=== PATIENT | female | born 1960 | race Caucasian/White ===

== ENCOUNTER 2016-09-23 18:48 | Observation (INO) | payer OTHER ==
--- NOTE | 2016-09-23 19:06 | PDOC ---
Attending Attestation - Resident Resident Name: JacobsenKale - ED Attending Attestation I have performed the following: I have examined & evaluated the patient, The case was reviewed & discussed with the resident, I agree w/resident's findings & plan, Exceptions are as noted <Zacarias Oneill - Last Filed: 09/23/16 19:05> - Resident Resident Name: DelmarKale - ED Attending Attestation I have performed the following: I have examined & evaluated the patient, The case was reviewed & discussed with the resident, I agree w/resident's findings & plan - HPI HPI: The patient is a 56 yo F with a past medical history significant for HTN and DM2 who presents with chest pain, numbness and tingling of her L arm and SOB since earlier today. The patient rates his chest pain 10/10. The patient also endorses associated headache. - Physicial Exam PE: GENERAL: Awake, alert, and fully oriented, in no acute distress HEAD: No signs of trauma EYES: PERRLA, EOMI, sclera anicteric, conjunctiva clear ENT: Auricles normal inspection, hearing grossly normal, nares patent, oropharynx clear without exudates. Moist mucosa NECK: Normal ROM, supple, no lymphadenopathy, JVD, or masses LUNGS: Breath sounds equal, clear to auscultation bilaterally. No wheezes, and no crackles HEART: Regular rate and rhythm, normal S1 and S2, no murmurs, rubs or gallops ABDOMEN: Soft, nontender, normoactive bowel sounds. No guarding, no rebound. No masses EXTREMITIES: Normal range of motion, no edema. No clubbing or cyanosis. No cords, erythema, or tenderness NEUROLOGICAL: Cranial nerves II through XII grossly intact. Normal speech, gait not assessed. SKIN: Warm, Dry, normal turgor, no rashes or lesions noted. - Medical Decision Making Paged Dr. Cortez @ 22:47. Awaiting call back. Documentation prepared by Natacha Perry, acting as medical interpreter for Zacarias Oneill MD/DO. <Natacha Perry - Last Filed: 09/23/16 22:47>
--- NOTE | 2016-09-23 19:54 | PDOC ---
History of Present Illness - General Chief Complaint: Chest Pain Stated Complaint: BLOOD SUGAR PROBLEM Time Seen by Provider: 09/23/16 19:03 History Source: Patient - History of Present Illness Initial Comments: 09/23/16 19:52 56F with pmh of HTN and DM2 presents with 10/10 chest pain and tingling along her left arm and left leg as well as SOB and headache since today. Patient is also concerned that her FS glucose has been increasing steadily since Friday ( 200->250->300). No recent change in medication or diet (metformin and amlodipine ). In the past 2 days increase in urinary frequency and urgency. She reports coughing yesterday but no hemoptysis. PAtient says she was profusely sweating at rest yesterday, sweat localized to her feet only earlier today. No recent travel. No pedal edema. Patient is post-menauposal. 09/23/16 21:20 Past History - Past Medical History Allergies/Adverse Reactions: Allergies Allergy/AdvReac Type Severity Reaction Status Date / Time No Known Allergies Allergy Verified 09/23/16 19:00 Home Medications: Ambulatory Orders Famotidine [Pepcid -] 20 mg PO BID #14 tablet 11/16/14 Mag Hydrox/Al Hydrox/Simeth [Maalox Advanced Suspension] 15 ml PO QID PRN #770 ml 11/16/14 Omeprazole Magnesium [Prilosec (OTC)] 20 mg PO DAILY 11/16/14 Diabetes: Yes GI Disorders: Yes (ULCER) HTN: Yes - Surgical History Cholecystectomy: (GALLSTONES REMOVED) - Psycho/Social/Smoking Cessation Hx Suicidal Ideation: No Smoking Status: No Smoking History: Never smoked Number of Cigarettes Smoked Daily: 0 Hx Alcohol Use: No Drug/Substance Use Hx: No Substance Use Type: None Review of Systems - Review of Systems Constitutional: No: Symptoms Reported HEENTM: No: Symptoms Reported Respiratory: Yes: See HPI, Cough Cardiac (ROS): No: See HPI ABD/GI: No: See HPI : No: See HPI Integumentary: No: Symptoms Reported Neurological: Yes: See HPI Endocrine: Yes: Excessive Sweating *Physical Exam - Vital Signs Last Vital Signs Temp Pulse Resp BP Pulse Ox 98.7 F 97 H 16 156/91 99 09/23/16 18:56 09/23/16 18:56 09/23/16 18:56 09/23/16 18:56 09/23/16 18:56 - Physical Exam General Appearance: Yes: Nourished, Appropriately Dressed, Moderate Distress HEENT: positive: EOMI, SIMONE Neck: positive: Trachea midline. negative: Tender Respiratory/Chest: positive: Lungs Clear, Normal Breath Sounds (pain of inspiration). negative: Chest Tender Cardiovascular: positive: Tachycardia Vascular Pulses: Carotid (R): 2+, Carotid (L): 2+, Dorsalis-Pedis (R): 2+, Doralis-Pedis (L): 2+ Gastrointestinal/Abdominal: positive: Normal Bowel Sounds, Soft. negative: Tender ED Treatment Course - LABORATORY CBC & Chemistry Diagram: 09/23/16 08:00 09/23/16 08:00 Medical Decision Making - Medical Decision Making 09/23/16 21:06 56F with pmh of HTN and DM2 presents with 10/10 chest pain and tingling along her left arm and left leg as well as SOB and headache since today with self- reported increased bp and fs sugar. CBC cmp neg UA with many wbc, blood and leukocyte esterase: started on Keflex CTA to r/o PE. 09/23/16 21:20 09/23/16 23:07 CtA negative for PE cardiac enzyme negative. Spoke to Dr. Cortez who admits for Dr. Tristen Guzman who agrees with patient to be admitted to Telemetry for atypical chest pain. *DC/Admit/Observation/Transfer Diagnosis at time of Disposition: Atypical angina - Discharge Dispostion Admit: Yes - Referrals Referrals: Tristen Guzman MD [Primary Care Provider] - Radha Cortez MD [Staff Physician] - Kenney De Paz MD [Staff Physician] -
[2016-09-23 20:13] LABS: BASOPHIL 0.8 % (0-2.0); EOSINOPHIL 0.3 % (0-4.5); MCH 28.2 pg (25.7-33.7); MEAN CELL VOLUME 83.1 fl (80-96); MEAN PLT VOLUME 8.3 fl (7.5-11.1); NEUTROPHILS 79.1 % (42.8-82.8); PLATELET COUNT 235 K/MM3 (134-434); RDW 13.2 % (11.6-15.6); WHITE BLOOD COUNT 7.1 K/mm3 (4.0-10.0)
[2016-09-23 20:14] LABS: URINE APPEARANCE CLEAR; URINE BILIRUBIN NEGATIVE (NEGATIVE); URINE BLOOD 1+ (NEGATIVE); URINE COLOR STRAW; URINE GLUCOSE (UA) NEGATIVE (NEGATIVE); URINE KETONE NEGATIVE (NEGATIVE); URINE NITRITE NEGATIVE (NEGATIVE); URINE PROTEIN NEGATIVE (NEGATIVE); URINE UROBILINOGEN NEGATIVE mg/dL (0.2-1.0)
[2016-09-23 20:19] LABS: URINE LEUK ESTERASE 3+ (NEGATIVE)
[2016-09-23 20:21] LABS: URINE BACTERIA RARE /hpf (NONE SEEN); URINE MUCUS RARE; URINE RBC 1 /hpf (0-3); URINE WBC 15 /hpf (3-5)
[2016-09-23 20:39] LABS: ALBUMIN 4.4 g/dl (3.4-5.0); ANION GAP 9 (8-16); BILIRUBIN,TOTAL 0.7 mg/dL (0.2-1.0); CALCIUM 9.6 mg/dL (8.5-10.1); CO2 26 mmol/L (21-32); CREATININE 0.7 mg/dL (0.55-1.02); GLUCOSE,RANDOM 138 mg/dL (74-106); SGOT/AST 20 U/L (15-37); SGPT/ALT 62 U/L (12-78); TOT PROT 7.8 g/dl (6.4-8.2)
[2016-09-23 20:41] LABS: ALK PHOS 126 U/L (45-117); CPK 101 IU/L (26-192); TROPONIN I < 0.02 ng/ml (0.00-0.05)
[2016-09-23] MEDS ORDERED: CEPHALEXIN MONOHYDRATE 500 MG CAPSULE (UD) PO ONE (20:51)
[2016-09-23] MEDS ORDERED: CEPHALEXIN MONOHYDRATE 250 MG CAPSULE (FP) ONE (21:00)
[2016-09-23] MEDS ORDERED: KETOROLAC TROMETHAMINE 30 MG/1 ML VIAL IVPUSH ONE (23:36)
[2016-09-23] MEDS ORDERED: KETOROLAC TROMETHAMINE 30 MG/1 ML VIAL ONE (23:37)
[2016-09-24 06:35] LABS: BASOPHIL 0.5 % (0-2.0); MCH 28.6 pg (25.7-33.7); MCHC 34.1 g/dl (32.0-36.0); MEAN PLT VOLUME 8.3 fl (7.5-11.1); NEUTROPHILS 71.4 % (42.8-82.8); PLATELET COUNT 224 K/MM3 (134-434); RDW 13.2 % (11.6-15.6); WHITE BLOOD COUNT 4.7 K/mm3 (4.0-10.0)
[2016-09-24 06:54] LABS: ALBUMIN 3.8 g/dl (3.4-5.0); ALK PHOS 112 U/L (45-117); ANION GAP 6 (8-16); CALCIUM 8.8 mg/dL (8.5-10.1); CO2 29 mmol/L (21-32); CREATININE 0.7 mg/dL (0.55-1.02); GLUCOSE,RANDOM 129 mg/dL (74-106); SGOT/AST 21 U/L (15-37); SGPT/ALT 56 U/L (12-78); TOT PROT 6.6 g/dl (6.4-8.2)
[2016-09-24] MEDS ORDERED: metFORMIN HCL 500 MG TABLET (FP) PO SCH (07:00)
[2016-09-24] MEDS: INSULIN SLIDING SCALE (NOVOLOG) 1 VIAL SQ SCH ×2 (07:51→13:27)
[2016-09-24 07:58] VITALS: TEMP 98.1
[2016-09-24] MEDS ORDERED: metFORMIN HCL 500 MG TABLET (FP) ONE (08:00)
[2016-09-24 08:08] LABS: CPK 91 IU/L (26-192)
[2016-09-24 08:09] LABS: TROPONIN I < 0.02 ng/ml (0.00-0.05)
--- NOTE | 2016-09-24 08:45 | CON.CARD ---
Consult Consult Specialty:: Cardiology Referred by:: Dr. Cortez Reason for Consultation:: chest pain - History of Present Illness Chief Complaint: chest pain History of Present Illness: 56 F w/ HTN, DM presents to ER with complaints of high sugars, HTN, upper back eliceo, central chest pain which pasted several minutes. She also had an episode of left arm "tingling" and pain which lasted "a few seconds" CTA chest negative for PE. ECG without acute changes. Cardiac enzymes negative x 2. - History Source History Provided By: Patient, Medical Record Limitations to Obtaining History: No Limitations - Past Medical History Cardio/Vascular: Yes: HTN Pulmonary: No: Asthma, Bronchitis, Cancer, COPD, O2 Dependent, Pneumonia, Previously Intubated, Pulmonary Embolus, Pulmonary Fibrosis, Sleep Apnea, Other Gastrointestinal: Yes: GERD Hepatobiliary: No: Cirrhosis, Cholelithiasis, Cholecystitis, Choledocholithiasis , Hepatitis A, Hepatitis B, Hepatitis C, Other Renal/: No: Renal Failure, Renal Inusuff, BPH, Cancer, Hematuria, Hemodialysis , Neurogenic Bladder, Renal Calculi, UTI, Other Reproductive: No: Ectopic , Endometriosis, Fibroids, PID, Polycystic Ovary Syndrome, Postmenopausal, Other Endocrine: Yes: Diabetes Mellitus - Past Surgical History Past Surgical History: No: None, AAA Repair, AICD, Amputation, Appendectomy, Arthrosocopy, AV Fistula/Graft, Bariatric Surgery, Breast Biopsy, Bypass, CABG, Carotid Endarterectomy, Cataract Removal, Cholecystectomy, Colectomy, Colonoscopy, Colostomy, Craniotomy, , Cystectomy, Hernia Repair, Hysterectomy, Ileal Conduit, Ileosotomy, Joint Replacement, Kidney Transplant, Laminectomy, Liver Transplant, Mastectomy, Nephrectomy, Oopherectomy, Orchiectomy, Permanent Pacemaker, Prostatectomy, Splenectomy, Stent, Thoracotomy , TURP, Tonsillectomy, Tubal Ligation, Upper Endoscopy, Valve Replacement, Vasectomy, Vein Stripping/Ligation - Alcohol/Substance Use Hx Alcohol Use: No - Smoking History Smoking history: Never smoked Aproximately how many cigarettes per day: 0 - Social History ADL: Independent History of Recent Travel: No Home Medications - Allergies Allergies/Adverse Reactions: Allergies Allergy/AdvReac Type Severity Reaction Status Date / Time No Known Allergies Allergy Verified 09/23/16 19:00 - Home Medications Home Medications: Ambulatory Orders Famotidine [Pepcid -] 20 mg PO BID #14 tablet 11/16/14 Mag Hydrox/Al Hydrox/Simeth [Maalox Advanced Suspension] 15 ml PO QID PRN #770 ml 11/16/14 Omeprazole Magnesium [Prilosec (OTC)] 20 mg PO DAILY 11/16/14 Family Disease History - Family Disease History Family History: Unremarkable Review of Systems Findings/Remarks: see HPI - Review of Systems Constitutional: reports: No Symptoms Eyes: reports: No Symptoms HENT: reports: No Symptoms Neck: reports: No Symptoms Cardiovascular: reports: Chest Pain Respiratory: denies: No Symptoms, Cough, Exercise Intolerance, Hemoptysis, Orthopnea, PND, Snoring, SOB, SOB on Exertion, Wheezing, Other Gastrointestinal: denies: No Symptoms, Abdominal Pain, Bloating, Constipation, Diarrhea, Dysphagia, Indigestion, Melena, Nausea, Rectal Bleeding, Vomiting, Vomiting Blood, Other Genitourinary: denies: No Symptoms, Burning, Discharge, Dysuria, Flank Pain, Frequency, Hematuria, Incontinence, Lesions, Menses, Pain, Testicular Mass, Testicular Pain, Testicular Swelling, Urgency, Vaginal Bleeding, Other Breasts: denies: No Symptoms Reported, See HPI, Breast Implants, Discharge from Nipple, Lumps, Pain, Skin Changes, Other Musculoskeletal: denies: No Symptoms, Back Pain, Crepitus, Decreased ROM, Extremity Pain, Joint Pain, Joint Swelling, Muscle Pain, Muscle Cramps, Muscle Weakness, Other Integumentary: denies: No Symptoms, Blister, Bruising, Change in Color, Eczema, Erythema, Incision, Lesions, Lump, Pallor, Pruritis, Rash, Wound, Other Neurological: denies: No Symptoms, Change in LOC, Change in Speech, Confusion, Dizziness, Headache, Incoordination, Numbness, Parasthesia, Pre-Existing Deficit , Seizure, Syncope, Tremors, Unsteady Gait, Weakness, Other Endocrine: denies: No Symptoms, Excessive Sweating, Flushing, Increased Hunger, Increased Thirst, Intolerance to Cold, Intolerance to Heat, Unexplained Weight Gain, Unexplained Weight Loss, Other Hematology/Lymphatic: denies: No Symptoms, Easily Bruised, Excessive Bleeding, Swollen Glands, Other Psychiatric: denies: No Symptoms, Altered Sleep Pattern, Anxiety, Depression, Hallucinations, Panic, Paranoia, Suicidal, Other - Risk Factors Known Risk Factors: Yes: Diabetes Mellitus, Hypertension Vital Signs: Vital Signs Temperature 98.1 F 09/24/16 07:54 Pulse Rate 79 09/24/16 07:54 Respiratory Rate 18 09/24/16 07:54 Blood Pressure 130/72 09/24/16 07:54 O2 Sat by Pulse Oximetry (%) 99 09/24/16 07:54 Constitutional: Yes: Calm Eyes: Yes: Conjunctiva Clear Respiratory: Yes: CTA Bilaterally Gastrointestinal: Yes: Soft Cardiovascular: Yes: Regular Rate and Rhythm JVD: No Carotid Bruit: No PMI: Non-Displaced Heart Sounds: Yes: S1, S2 (RRR, no murmurs) Edema: No Peripheral Pulses WNL: Yes Neurological: Yes: Alert, Oriented ...Motor Strength: WNL Psychiatric: Yes: WNL - Other Data Labs, Other Data: CBC, BMP 09/24/16 06:05 09/24/16 06:05 Troponin, BNP 09/24/16 02:45 Troponin I < 0.02 Troponin, BNP 09/24/16 02:45 Troponin I < 0.02 NSR 94bpm, no acute changes Echo: Pending Stress Echo: Pending Imaging - Results Cat Scan: Image Reviewed EKG: Image Reviewed Problem List - Problems (1) Atypical chest pain Code(s): R07.89 - OTHER CHEST PAIN (2) Hypertension Code(s): I10 - ESSENTIAL (PRIMARY) HYPERTENSION Qualifiers: Hypertension type: essential hypertension Qualified Code(s): I10 - Essential (primary) hypertension (3) Diabetes Code(s): E11.9 - TYPE 2 DIABETES MELLITUS WITHOUT COMPLICATIONS Qualifiers: Diabetes mellitus type: type 2 Diabetes mellitus complication status: without complication Assessment/Plan IMP: Atypical chest pain Diabetes Hypertension, chronic REC: Aspirin. Plan for stress echo later this morning, further reccs pending result. If negative, ok for discharge home w/ PMD f/u in 1-2 weeks. Thanks.
[2016-09-24] MEDS ORDERED: amLODIPine BESYLATE 2.5 MG TABLET (FP) PO SCH (10:00)
[2016-09-24] MEDS ORDERED: RANITIDINE HCL 150 MG TABLET (FP) PO SCH (10:00)
[2016-09-24] MEDS ORDERED: PANTOPRAZOLE 20 MG TABLET (FP) PO SCH (10:00)
[2016-09-24] MEDS ORDERED: CEFTRIAXONE 50 ML IVPB SCH (10:00)
[2016-09-24 11:32] LABS: CPK 90 IU/L (26-192); TROPONIN I < 0.02 ng/ml (0.00-0.05)
[2016-09-24] MEDS ORDERED: CEFTRIAXONE 50 ML ONE (14:27)
[2016-09-24 15:01] VITALS: BMI 30.2
[2016-09-24 18:25] VITALS: BP 132/65; PULSE 78
--- NOTE | 2016-09-24 23:48 | HP ---
Admitting History and Physical - Past Medical History Cardiovascular: Yes: HTN Pulmonary: No: Asthma, Bronchitis, Cancer, COPD, O2 Dependent, Pneumonia, Previously Intubated, Pulmonary Embolus, Pulmonary Fibrosis, Sleep Apnea, Other Gastrointestinal: Yes: GERD Hepatobiliary: No: Cirrhosis, Cholelithiasis, Cholecystitis, Choledocholithiasis , Hepatitis A, Hepatitis B, Hepatitis C, Other Renal/: No: Renal Failure, Renal Inusuff, BPH, Cancer, Hematuria, Hemodialysis , Neurogenic Bladder, Renal Calculi, UTI, Other Endocrine: Yes: Diabetes Mellitus - Past Surgical History Past Surgical History: No: None, AAA Repair, AICD, Amputation, Appendectomy, Arthrosocopy, AV Fistula/Graft, Bariatric Surgery, Breast Biopsy, Bypass, CABG, Carotid Endarterectomy, Cataract Removal, Cholecystectomy, Colectomy, Colonoscopy, Colostomy, Craniotomy, , Cystectomy, Hernia Repair, Hysterectomy, Ileal Conduit, Ileosotomy, Joint Replacement, Kidney Transplant, Laminectomy, Liver Transplant, Mastectomy, Nephrectomy, Oopherectomy, Orchiectomy, Permanent Pacemaker, Prostatectomy, Splenectomy, Stent, Thoracotomy , TURP, Tonsillectomy, Tubal Ligation, Upper Endoscopy, Valve Replacement, Vasectomy, Vein Stripping/Ligation - Smoking History Smoking history: Never smoked Aproximately how many cigarettes per day: 0 - Alcohol/Substance Use Hx Alcohol Use: No - Social History ADL: Independent History of Recent Travel: No Home Medications - Allergies Allergies/Adverse Reactions: Allergies Allergy/AdvReac Type Severity Reaction Status Date / Time No Known Allergies Allergy Verified 09/23/16 19:00 - Home Medications Home Medications: Ambulatory Orders Omeprazole Magnesium [Prilosec (OTC)] 20 mg PO DAILY 11/16/14 Amlodipine Besylate [Norvasc -] 2.5 mg PO DAILY tablet 09/24/16 Amlodipine Besylate [Norvasc -] 5 mg PO DAILY 09/24/16 Physical Examination Vital Signs: Vital Signs Temperature 98.1 F 09/24/16 07:54 Pulse Rate 78 09/24/16 18:23 Respiratory Rate 18 09/24/16 18:23 Blood Pressure 132/65 09/24/16 18:23 O2 Sat by Pulse Oximetry (%) 99 09/24/16 18:23
--- NOTE | 2016-09-25 16:46 | EKG ---
Test Reason : Blood Pressure : / mmHG Vent. Rate : 094 BPM Atrial Rate : 094 BPM P-R Int : 132 ms QRS Dur : 090 ms QT Int : 354 ms P-R-T Axes : 035 047 040 degrees QTc Int : 442 ms NORMAL SINUS RHYTHM NORMAL ECG WHEN COMPARED WITH ECG OF 16-NOV-2014 11:38, NO SIGNIFICANT CHANGE WAS FOUND Confirmed by CAITLIN SUMMERS MD ([id number]) on 09/25/2016 4:45:58 PM Referred By: Confirmed By:CAITLIN SUMMERS MD
== END 2016-09-24 18:45 | disposition home or self-care (01) ==
LOC: SUPCPDRO 18:48 → JER 18:48 → JERBED 23:02 → INTOOBSV 23:02 → UNDOADMOB 23:02 → JERBED 23:14 → UNDOADMIN 23:14 → JERBED 09-24 11:20
PROVIDERS: ADMIT Internal Medicine; ATTEND Internal Medicine
PROC: 3E0333Z Introduction of Anti-inflammatory into Peripheral Vein, Percutaneous Approach (ICD-10-PCS; principal; 2016-09-24)
PROC: 3E03329 Introduction of Other Anti-infective into Peripheral Vein, Percutaneous Approach (ICD-10-PCS; 2016-09-24)
DX: I20.8 Other forms of angina pectoris (principal); I10 Essential (primary) hypertension; R07.89 Other chest pain
CPT/HCPCS: 36415; 71275-TC; 78452-TC; 80053; 81003; 81015; 83036; 84484; 84703; 85025; 87040; 87086; 93005; 93010; 93017; 93306-TC; 99285-25; A9502; G0378

== ENCOUNTER 2018-05-01 06:10 | Inpatient (IN) | payer OTHER ==
[2018-04-30 13:18] VITALS: BMI 30.2
[2018-05-01] MEDS ORDERED: ROPIVACAINE HCL 0.5% 30ML VIAL ONE (06:44)
[2018-05-01] MEDS ORDERED: MIDAZOLAM HCL 2 MG/2 ML SINGLE DOSE VIAL ONE ×3 (07:19→07:27)
[2018-05-01] MEDS ORDERED: fentaNYL CITRATE 250 MCG/5 ML VIAL ONE (07:27)
[2018-05-01] MEDS ORDERED: DEXAMETHASONE SOD PHOSPHATE 4 MG/1 ML VIAL ONE (07:27)
[2018-05-01] MEDS ORDERED: PROPOFOL 20 ML ONE (07:27)
--- NOTE | 2018-05-01 08:14 | HP ---
Admitting History and Physical - Admission Chief Complaint: Endometrial hyperplasia History of Present Illness: 57 yo P2, diagnosed with endometrial hyperplasia is pre op for abdominal hysterectomy. History Source: Patient Limitations to Obtaining History: No Limitations - Past Medical History Cardiovascular: Yes: HTN Gastrointestinal: Yes: GERD ...LMP Comment: 3yrs ago ...: No ...Para: 2 Endocrine: Yes: Diabetes Mellitus - Past Surgical History Past Surgical History: Yes: None - Smoking History Smoking history: Never smoked Aproximately how many cigarettes per day: 0 - Alcohol/Substance Use Hx Alcohol Use: No - Social History ADL: Independent History of Recent Travel: No Home Medications - Allergies Allergies/Adverse Reactions: Allergies Allergy/AdvReac Type Severity Reaction Status Date / Time No Known Allergies Allergy Verified 05/01/18 07:18 - Home Medications Home Medications: Ambulatory Orders Amlodipine Besylate [Norvasc -] 5 mg PO DAILY 09/24/16 Dayquil 1 tab PO PRN PRN 04/30/18 Glipizide 5 mg PO BID 04/30/18 Family Disease History - Family Disease History Family History: Unremarkable Review of Systems - Review of Systems Constitutional: reports: No Symptoms Eyes: reports: No Symptoms HENT: reports: No Symptoms Neck: reports: No Symptoms Cardiovascular: reports: No Symptoms Respiratory: reports: No Symptoms Gastrointestinal: reports: No Symptoms Genitourinary: reports: No Symptoms Breasts: reports: No Symptoms Reported Musculoskeletal: reports: No Symptoms Integumentary: reports: No Symptoms Neurological: reports: No Symptoms Psychiatric: reports: No Symptoms Pain Intensity: 0 Physical Examination Vital Signs: Vital Signs Temperature 98.1 F 05/01/18 07:18 Pulse Rate 82 05/01/18 07:18 Respiratory Rate 20 05/01/18 07:18 Blood Pressure 137/81 05/01/18 07:18 O2 Sat by Pulse Oximetry (%) 98 05/01/18 07:14 Constitutional: Yes: Well Nourished Eyes: Yes: Conjunctiva Clear HENT: Yes: Atraumatic Neck: Yes: Supple Cardiovascular: Yes: Regular Rate and Rhythm Respiratory: Yes: Regular Gastrointestinal: Yes: Normal Bowel Sounds Extremities: Yes: WNL Neurological: Yes: Alert, Oriented Psychiatric: Yes: Alert, Oriented Problem List - Problems (1) Endometrial hyperplasia Code(s): N85.00 - ENDOMETRIAL HYPERPLASIA, UNSPECIFIED Assessment/Plan Endometrial hyperplasia Pre op for hysterectomy Consent signed Anesthesia to see patient
[2018-05-01] MEDS ORDERED: ceFAZolin SODIUM 1 GM VIAL IVPB ONE (08:28)
[2018-05-01] MEDS ORDERED: ceFAZolin SODIUM 1 GM VIAL ONE (08:28)
[2018-05-01] MEDS ORDERED: ONDANSETRON 4 MG/2 ML VIAL IVPUSH PRN (09:03)
[2018-05-01] MEDS ORDERED: HYDROmorphone HCl 2 MG/ML VIAL ONE (09:24)
--- NOTE | 2018-05-01 10:29 | OP ---
Operative Note - Note: Operative Date: 05/01/18 Pre-Operative Diagnosis: Endometrial hyperplasia Operation: Subtotal hysterectomy / Bilateral salpingoophorectomy Post-Operative Diagnosis: Same as Pre-op Surgeon: Norma Monge It Operations Specialist: Mohit Ward Anesthesia: General Estimated Blood Loss (mls): 300
[2018-05-01] MEDS ORDERED: DEXTROSE 5%-LACTATED RINGERS 1,000 ML IV SCH (10:45)
[2018-05-01] MEDS ORDERED: fentaNYL 1000 MCG/50 ML *PCA* DISP.SYRIN PCA SCH (10:45)
[2018-05-01] MEDS ORDERED: oxyCODONE HCL 5 MG TABLET PO PRN ×2 (10:51→10:52)
[2018-05-01] MEDS ORDERED: ACETAMINOPHEN 325 MG TABLET (FP) PO PRN ×2 (10:51→10:53)
[2018-05-01] MEDS ORDERED: HYDROmorphone *PCA* 10MG/50ML DISP.SYRIN PCA ONE (11:40)
--- NOTE | 2018-05-01 11:43 | SURG ---
Surgery Pumper Gager Apprentice Note Pumper Gager Apprentice: Mohit Ward PA-C Date of Service: 05/01/18 Diagnosis: Endometrial hyperplasia Procedure: Abdominal hysterectomy, bilateral salpingectomy I was present for the entirety of the operative procedure. For further detail, please refer to operative report. Visit type - Case Type Case Type: Scheduled - Emergency Emergency Visit: No - New patient This patient is new to me today: Yes Date on this admission: 05/01/18
[2018-05-01] MEDS ORDERED: HYDROmorphone *PCA* 10MG/50ML DISP.SYRIN PCA SCH (11:45)
[2018-05-01] MEDS: LACTATED RINGERS SOLUTION 1,000 ML IV SCH ×2 (13:45→17:51)
[2018-05-01] MEDS: glipiZIDE 5 MG TABLET (FP) PO SCH (19:20)
[2018-05-02] MEDS: INSULIN SLIDING SCALE (NOVOLOG) 1 VIAL SQ SCH ×3 (00:05→10:59)
[2018-05-02] MEDS: LACTATED RINGERS SOLUTION 1,000 ML IV SCH (01:59)
[2018-05-02] MEDS: glipiZIDE 5 MG TABLET (FP) PO SCH (06:12)
[2018-05-02] MEDS ORDERED: glipiZIDE 5 MG TABLET (FP) PO SCH (07:00)
[2018-05-02] MEDS ORDERED: amLODIPine BESYLATE 5 MG TABLET (FP) PO ONE (07:15)
[2018-05-02 07:22] VITALS: PULSE 92
[2018-05-02 08:11] LABS: BASO % 0.1 % (0-2.0); HEMATOCRIT 29.5 % (32.4-45.2); HEMOGLOBIN 10.3 GM/dL (10.7-15.3); LYMPH % 7.6 % (8-40); MCH 29.7 pg (25.7-33.7); MEAN PLT VOLUME 9.1 fl (7.5-11.1); MONO % 7.2 % (3.8-10.2); NEUT % 85.1 % (42.8-82.8); PLATELET COUNT 182 K/MM3 (134-434); RBC 3.47 M/mm3 (3.60-5.2); RDW 13.5 % (11.6-15.6); WHITE BLOOD COUNT 9.1 K/mm3 (4.0-10.0)
[2018-05-02 08:25] LABS: ANION GAP 5 MMOL/L (8-16); BLOOD UREA NITROGEN 16 mg/dL (7-18); CALCIUM 8.3 mg/dL (8.5-10.1); CHLORIDE 106 mmol/L (98-107); CO2 27 mmol/L (21-32); CREATININE 0.5 mg/dL (0.55-1.3); GLUCOSE,RANDOM 114 mg/dL (74-106); SODIUM 138 mmol/L (136-145)
--- NOTE | 2018-05-02 08:44 | PN ---
Progress Note (short form) - Note Progress Note: 57 yo Para 2, with h/o endometrial hyperplasia, status post abdominal hysterectomy seen and evaluated. She' s on medication for diabetes and hypertension. She was seen last night by hospitalist due to elevated blood sugar. IVF was changed from D5LR to LR. Insulin was given. She's doing well and is asking for regular diet. PE : Chest : CTA, no rales ABD : Soft, dressing dry, no bleeding. Mild incision pain EXT : Venodyne's boot's in place ASS / Plan : Status post hysterectomy Personal h/o diabetes D/C SURGICAL MANAGER D/C Clements catheter Ambulation Percocet F/U Labs Diabetic diet D/C home tomorrow Problem List - Problems (1) Endometrial hyperplasia Code(s): N85.00 - ENDOMETRIAL HYPERPLASIA, UNSPECIFIED
--- NOTE | 2018-05-02 09:43 | PN ---
Progress Note (short form) - Note Progress Note: POST OP DAY#1.S/P Abdominal hysterectomy under GA uneventful.Patient stable and c/o pain score of 4-5/10 on dilaudid FLOATLIGHT POWDER MIXER.Will Dc tower excavator operator today and put patient on prn pain medication.No any anesthesia related problem.Patient DC from the anesthesia care.
[2018-05-02] MEDS ORDERED: amLODIPine BESYLATE 5 MG TABLET (FP) PO SCH (10:00)
[2018-05-02] MEDS ORDERED: INSULIN (NOVOLOG) ASPART 100 UNITS/ML 10ML VIAL ONE (11:05)
[2018-05-02] MEDS ORDERED: PT OWN MED DRAWER 7, Y5N ONE (11:05)
[2018-05-02 12:06] VITALS: BP 142/93; TEMP 99
--- NOTE | 2018-05-02 22:25 | DS ---
Physical Examination Vital Signs: Vital Signs Temperature 99 F 05/02/18 09:00 Pulse Rate 92 H 05/02/18 09:00 Respiratory Rate 20 05/02/18 09:00 Blood Pressure 142/93 05/02/18 09:00 O2 Sat by Pulse Oximetry (%) 98 05/01/18 21:00 Constitutional: Yes: No Distress Eyes: Yes: Conjunctiva Clear HENT: Yes: Atraumatic Neck: Yes: Supple Cardiovascular: Yes: Regular Rate and Rhythm Respiratory: Yes: Regular Gastrointestinal: Yes: Normal Bowel Sounds Musculoskeletal: Yes: WNL Extremities: Yes: WNL Neurological: Yes: Alert, Oriented ...Motor Strength: WNL Psychiatric: Yes: Alert, Oriented Labs: CBC, BMP 05/02/18 06:40 05/02/18 06:40 Discharge Summary Reason For Visit: ENDOMETRIAL HYPERPLASIA Procedures: Principal: Subtotal hysterectomy / Bilateral salpingoophorectomy Hospital Course: Routine post op care Condition: Stable - Instructions Diet, Activity, Other Instructions: Diabetic diet No driving, no lifting x 2 weeks F/U with MD in 2 weeks Disposition: HOME - Home Medications Comprehensive Discharge Medication List: Ambulatory Orders Amlodipine Besylate [Norvasc -] 5 mg PO DAILY 09/24/16 Dayquil 1 tab PO PRN PRN 04/30/18 Glipizide 5 mg PO BID 04/30/18 Oxycodone HCl/Acetaminophen [Percocet 5-325 mg Tablet] 1 tab PO Q4H #20 tablet MDD 20 05/02/18
--- NOTE | 2018-05-04 12:12 | PATH ---
Surgical Pathology Report Patient Name: AYDE MORAES [facility]. Rec. #: [id number] /Age/Gender: 1960 (Age: 57) / F Account: [id number] Location: [facility]URG Taken: 05/01/2018 Received: 05/01/2018 Reported: 05/04/2018 Physicians: Norma Monge M.D. Specimen(s) Received A: RIGHT FALLOPIAN TUBE B: UTERUS, LEFT FALLOPIAN TUBE, LEFT ADNEXA C: RIGHT ADNEXA Clinical History Endometrial hyperplasia Final Diagnosis A. RIGHT FALLOPIAN TUBE, SALPINGECTOMY: FULL LUMINAL PORTION OF BENIGN FALLOPIAN TUBE INCLUDING FIMBRIATED END. B. UTERUS, SUPRACERVICAL HYSTERECTOMY: UTERUS, 133 GRAMS, WITH FOCAL SIMPLE ENDOMETRIAL HYPERPLASIA WITHOUT ATYPIA, TWO BENIGN ENDOMETRIAL POLYPS ONE OF WHICH SHOWS METAPLASTIC CHANGES, ADENOMYOSIS, AND MULTIPLE LEIOMYOMAS. BENIGN FALLOPIAN TUBE AND OVARY PRESENT. C. RIGHT ADNEXA, EXCISION: BENIGN FIBROVASCULAR TISSUE WITH ENDOMETRIOSIS AND THERMAL ARTIFACT. Electronically Signed Darien Townsend M.D. Gross Description A. Received in formalin labeled "right fallopian tube," is a 4.8 cm in length fimbriated fallopian tube. The outer surface is vazquez-red and smooth with a 0.9 cm in greatest dimension paratubal cyst attached. Sectioning reveals an unremarkable lumen. Sandwich Counter Attendant sections are submitted in 2 cassettes as follows: 1-fimbria; 2-cross sections of fallopian tube and paratubal cyst. B. Received in formalin labeled "uterus, left fallopian tube," is a 133 g supracervically amputated uterus with an attached left fallopian tube and left ovary. There is no attached right adnexa. The specimen measures 6.5 cm from superior to inferior, 6.5 cm from left to right and 5.0 cm from anterior to posterior. The serosa is vazquez-red and smooth. The endometrial cavity measures 4.6 cm in length and 3.5 cm from cornu to cornu. The posterior endometrium displays 2 polypoid lesions measuring 0.7 and 1.7 cm in greatest dimension. The remaining endometrium is vazquez-red and averages 0.1 cm in thickness. The myometrium displays multiple intramural nodules, measuring up to 1.3 cm in greatest dimension. The cut surface of the nodules is vazquez and rubbery with whorled architecture. No areas of hemorrhage or necrosis are identified. The remaining myometrium is vazquez-pink and measures up to 2.8 cm in thickness. The left fimbriated fallopian tube measures 4.5 cm in length. The outer surface is vazquez-pink and smooth. Sectioning reveals an unremarkable lumen. The left ovary measures 2.4 x 1.1 x 0.8 cm. The outer surface is vazquez-yellow, convoluted and smooth. Sectioning reveals unremarkable ovarian parenchyma. Sandwich Counter Attendant sections are submitted in 11 cassettes as follows: 1-cervical stump margin of resection; 8-1-ylnfwxvv endomyometrium; 4-1-xrneqrnxx endomyometrium with larger polyp; 5-1-knooqjvpu endomyometrium with smaller polyp; 8-intramural nodules; 9-left fallopian tube fimbria; 10-cross sections of left fallopian tube; 11-left ovary. C. Received in formalin labeled "right adnexa," is a 2.3 x 1.8 x 1.1 cm vazquez-red, firm portion of fibrous tissue. The specimen is serially sectioned and entirely submitted in 2 cassettes. 05/01/[address] [facility]05/01/2018
--- NOTE | 2018-05-04 16:39 | OP ---
DATE OF OPERATION: 05/01/2018 PREOPERATIVE DIAGNOSIS: Endometrial hyperplasia. POSTOPERATIVE DIAGNOSIS: Endometrial hyperplasia. PROCEDURE: Subtotal hysterectomy and bilateral salpingo-oophorectomy. SURGEON: Keshia Monge MD ENVELOPE MAKER: ASHLI Mondragon ANESTHESIA: General. ESTIMATED BLOOD LOSS: 300 mL. DESCRIPTION OF PROCEDURE: The patient was taken to the operating room where general anesthesia was administered. Patient was then placed in supine position. She was then prepped and draped in proper sterile fashion. A Pfannenstiel skin incision was made and carried approximately 6 cm above the pubic symphysis and extended down sharply through the rectus fascia. The fascia was then incised bilaterally using the Bovie cautery. Then the muscle of the anterior abdominal wall was then in the midline by sharp and blunt dissection. The peritoneum was grasped with a Get clamp, elevated and entered sharply with then Metzenbaum scissors. The pelvis was examined and there were no adhesions noted but the uterus was not freely mobile. There was lack of mobility noted with the uterus, which made it difficult to exteriorize. Then the bowel was packed with moist laparotomy sponges. Two pean clamps were place on the cornua and used for retraction. The round ligament on the left side was clamped using the LigaSure device and burned and cut. The same procedure was done on the right side, but the anatomy on the right side was atypical. The adnexa could not be visualized. The anterior leaf of the broad ligament was incised along the bladder reflection to the midline from both sides. The bladder was dissected off the lower uterine segment with a sponge stick. Visualization was suboptimal due to the atypical pelvis. Dissection was possible with the assistance of te non morse intercept technician and Physician land surveyor assistant. The infundibulopelvic ligament on both sides was then clamped with the LigaSure device, burned and cut. Hemostasis was visualized. The uterine arteries were skeletonized bilaterally, then clamped with the LigaSure device, burned and cut. Again hemostasis was assured. The uterosacral ligaments were then clamped on both sides, burned and cut using the LigaSure device in a similar fashion. The uterus was then amputated with the cautery. The cervical stump was closed with [id number] sutures of 0- Vicryl. Then the pelvis was completely irrigated with normal saline. Interceed was placed over the cervical stump. The laparotomy sponges and instruments were removed from the abdomen. Then due to incorrect lap pad count, an abdominal x-ray was ordered to localize any remaining lap pads. Meanwhile, several attempts made to retrieve the lap pad were unsuccessful. While waiting for Xray, the fascia was closed with 0-Vicryl and the skin was closed with 3-0 Vicryl. The abdominal x-ray was then done and localized the lap pad on the right side. Patient was then re-drapped, the incision was opened and a small lap pad shaped like a ball was found between the bowel on the right side. The peritoneum was subsequently closed. The fascia was reapproximated with 0-Vicryl and the skin was closed with 3-0 Vicryl. The patient was taken to PACU awake and in stable condition. PATHOLOGY: Uterus, tubes and ovaries. ALLAN MONGE M.D. [id number] MTDD
== END 2018-05-02 18:41 | disposition home or self-care (01) | DRG 513 ==
LOC: JSAMEDAYSX 06:10 → J8W 13:03
PROVIDERS: ADMIT Obstetrics & Gynecology; ATTEND Obstetrics & Gynecology
PROC: 0UB70ZZ Excision of Bilateral Fallopian Tubes, Open Approach (ICD-10-PCS; 2018-05-01)
PROC: 0UB20ZZ Excision of Bilateral Ovaries, Open Approach (ICD-10-PCS; 2018-05-01)
PROC: 0UT90ZZ Resection of Uterus, Open Approach (ICD-10-PCS; principal; 2018-05-01 07:30)
DX: N85.00 Endometrial hyperplasia, unspecified (principal); I10 Essential (primary) hypertension; E11.9 Type 2 diabetes mellitus without complications; K21.9 Gastro-esophageal reflux disease without esophagitis
CPT/HCPCS: 36415; 74019-TC-FY; 80048; 82962; 85025; 86850; 86900; 86901; 88302-TC; 88305-TC; 88307-TC; 94010; 94760

== ENCOUNTER 2020-02-12 10:37 | Emergency (ER) | payer SELFPAY ==
[2020-02-12 10:49] VITALS: BP 144/78; PULSE 108; TEMP 99.3; BMI 28.3
[2020-02-12] MEDS ORDERED: AZITHROMYCIN 250 MG TABLET PO ONE (13:07)
[2020-02-12] MEDS ORDERED: AZITHROMYCIN 250 MG TABLET ONE (13:13)
== END 2020-02-12 13:48 | disposition home or self-care (01) ==
LOC: JER 10:37
DX: Z11.59 Encounter for screening for other viral diseases (principal)
CPT/HCPCS: 71046-TC-FY; 82962; 99284-25

== ENCOUNTER 2020-09-26 01:44 | Emergency (ER) | payer OTHER ==
[2020-09-26 02:17] VITALS: TEMP 97.7; BMI 29.2
[2020-09-26] MEDS ORDERED: FAMOTIDINE 10 MG TABLET PO ONE (04:08)
[2020-09-26] MEDS ORDERED: MAG HYDROX/AL HYDROX/SIMETH 30 ML UNIT-DOSE CUP PO ONE (04:08)
[2020-09-26] MEDS ORDERED: ACETAMINOPHEN 325 MG TABLET (FP) PO ONE (04:08)
[2020-09-26] MEDS ORDERED: FAMOTIDINE 20 MG TABLET ONE (04:12)
[2020-09-26] MEDS ORDERED: ACETAMINOPHEN 325 MG TABLET (FP) ONE (04:12)
[2020-09-26] MEDS ORDERED: MAG HYDROX/AL HYDROX/SIMETH 30 ML UNIT-DOSE CUP ONE (04:13)
[2020-09-26 04:56] LABS: BASO % 0.6 % (0-2.0); EOS % 2.2 % (0-4.5); HEMATOCRIT 41.3 % (32.4-45.2); HEMOGLOBIN 14.1 GM/dL (10.7-15.3); LYMPH % 21.9 % (8-40); MCH 28.8 pg (25.7-33.7); MCHC 34.1 g/dl (32.0-36.0); MEAN CELL VOLUME 84.6 fl (80-96); MEAN PLT VOLUME 9.8 fl (7.5-11.1); NEUT % 68.3 % (42.8-82.8); PLATELET COUNT 188 10^3/uL (134-434); RBC 4.88 M/mm3 (3.60-5.2); RDW 13.9 % (11.6-15.6); WHITE BLOOD COUNT 5.3 K/mm3 (4.0-10.0)
[2020-09-26 05:12] LABS: CHLORIDE 111 mmol/L (98-107); SODIUM 142 mmol/L (136-145)
[2020-09-26 05:13] LABS: CALCIUM 8.8 mg/dL (8.5-10.1)
[2020-09-26 05:14] LABS: ALBUMIN 3.9 g/dl (3.4-5.0); ANION GAP 7 MMOL/L (8-16); BLOOD UREA NITROGEN 20.8 mg/dL (7-18); CO2 24 mmol/L (21-32); GLUCOSE,RANDOM 119 mg/dL (74-106)
[2020-09-26 05:16] LABS: PH,URINE >= 9.0 (5.0-8.0); URINE APPEARANCE CLEAR; URINE BILIRUBIN NEGATIVE (NEGATIVE); URINE COLOR YELLOW; URINE GLUCOSE (UA) NEGATIVE (NEGATIVE); URINE KETONE NEGATIVE (NEGATIVE); URINE LEUK ESTERASE NEGATIVE (NEGATIVE); URINE NITRITE NEGATIVE (NEGATIVE); URINE PROTEIN NEGATIVE (NEGATIVE); URINE UROBILINOGEN 0.2 mg/dL (0.2-1.0)
[2020-09-26 05:17] LABS: CREATININE 0.7 mg/dL (0.55-1.3); SGOT/AST 18 U/L (15-37); SGPT/ALT 45 U/L (13-61)
[2020-09-26 05:19] LABS: BILIRUBIN,TOTAL 0.5 mg/dL (0.2-1); TOT PROT 6.9 g/dl (6.4-8.2)
[2020-09-26 05:20] LABS: ALK PHOS 108 U/L (45-117)
[2020-09-26 08:35] VITALS: BP 123/70; PULSE 61
== END 2020-09-26 08:38 | disposition home or self-care (01) ==
LOC: JER 01:44
DX: R10.12 Left upper quadrant pain (principal)
CPT/HCPCS: 36415; 71045-TC-FY; 71260-TC; 74177-TC; 80053; 81003; 84484; 85025; 87086; 93005; 93010; 99285-25

== ENCOUNTER 2021-05-03 16:06 | Emergency (ER) | payer OTHER ==
[2021-05-03 16:24] VITALS: BP 119/78; PULSE 119; TEMP 98.1; BMI 30.2
[2021-05-03] MEDS ORDERED: SODIUM CHLORIDE 0.9% 500 ML INFUS.BAG IV ONE (18:06)
[2021-05-03] MEDS ORDERED: METOCLOPRAMIDE HCL INJECTION 10 MG/2 ML VIAL IVPB ONE (18:06)
[2021-05-03] MEDS ORDERED: METOCLOPRAMIDE HCL INJECTION 10 MG/2 ML VIAL ONE (18:14)
[2021-05-03] MEDS ORDERED: MECLIZINE HCL 25 MG TABLET (FP) PO ONE (18:28)
[2021-05-03] MEDS ORDERED: MECLIZINE HCL 25 MG TABLET (FP) ONE (18:44)
[2021-05-03 19:08] LABS: BASO % 0.4 % (0-2.0); EOS % 0.9 % (0-4.5); HEMATOCRIT 43.9 % (32.4-45.2); HEMOGLOBIN 14.5 GM/dL (10.7-15.3); LYMPH % 19.5 % (8-40); MCH 28.1 pg (25.7-33.7); MCHC 33.1 g/dl (32.0-36.0); MEAN CELL VOLUME 85.1 fl (80-96); MEAN PLT VOLUME 9.3 fl (7.5-11.1); MONO % 4.2 % (3.8-10.2); PLATELET COUNT 218 10^3/uL (134-434); RBC 5.16 M/mm3 (3.60-5.2); RDW 13.2 % (11.6-15.6)
[2021-05-03 19:29] LABS: CALCIUM 9.3 mg/dL (8.5-10.1)
[2021-05-03 19:30] LABS: ALBUMIN 4.2 g/dl (3.4-5.0); BLOOD UREA NITROGEN 26.4 mg/dL (7-18)
[2021-05-03 19:33] LABS: CREATININE 0.7 mg/dL (0.55-1.3)
[2021-05-03 19:34] LABS: TOT PROT 7.3 g/dl (6.4-8.2)
[2021-05-03 19:35] LABS: BILIRUBIN,TOTAL 0.4 mg/dL (0.2-1)
== END 2021-05-03 22:11 | disposition home or self-care (01) ==
LOC: JER 16:06
PROC: 3E033GC Introduction of Other Therapeutic Substance into Peripheral Vein, Percutaneous Approach (ICD-10-PCS; principal; 2021-05-03)
DX: R51.9 Headache, unspecified (principal); R73.9 Hyperglycemia, unspecified
CPT/HCPCS: 36415; 70450-TC; 80053; 85025; 93005; 93010; 99285-25

== ENCOUNTER 2022-07-28 15:37 | Emergency (ER) | payer OTHER ==
[2022-07-28 15:49] VITALS: RESP 18; BMI 29.2
[2022-07-28] MEDS ORDERED: ASPIRIN 81 MG CHEWABLE TABLETS PO ONE (16:32)
[2022-07-28] MEDS ORDERED: ASPIRIN 81 MG CHEWABLE TABLETS ONE (17:07)
[2022-07-28 17:35] LABS: BASO % 0.4 % (0-2.0); EOS % 1.9 % (0-4.5); HEMATOCRIT 42.5 % (32.4-45.2); HEMOGLOBIN 14.4 GM/dL (10.7-15.3); LYMPH % 20.3 % (8-40); MCH 28.5 pg (25.7-33.7); MCHC 33.9 g/dl (32.0-36.0); MEAN CELL VOLUME 84.1 fl (80-96); MEAN PLT VOLUME 9.3 fl (7.5-11.1); MONO % 5.8 % (3.8-10.2); NEUT % 71.6 % (42.8-82.8); PLATELET COUNT 188 10^3/uL (134-434); RBC 5.05 M/mm3 (3.60-5.2); RDW 13.7 % (11.6-15.6); WHITE BLOOD COUNT 5.3 K/mm3 (4.0-10.0)
[2022-07-28 17:42] LABS: INR 1.03 (0.83-1.09); PROTHROMBIN TIME (PATIENT) 11.9 SEC (9.7-13.0)
[2022-07-28 17:53] LABS: POTASSIUM 3.9 mmol/L (3.5-5.1)
[2022-07-28 17:55] LABS: CALCIUM 9.7 mg/dL (8.5-10.1)
[2022-07-28 17:56] LABS: ALBUMIN 3.8 g/dl (3.4-5.0)
[2022-07-28 17:58] LABS: CREATININE 0.8 mg/dL (0.55-1.3)
[2022-07-28 18:00] LABS: BILIRUBIN,TOTAL 0.4 mg/dL (0.2-1)
[2022-07-28 19:09] VITALS: BP 132/62; PULSE 73; TEMP 98.5
== END 2022-07-28 19:10 | disposition home or self-care (01) ==
LOC: JER 15:37
DX: M79.602 Pain in left arm (principal); R07.89 Other chest pain; R00.2 Palpitations; R51.9 Headache, unspecified
CPT/HCPCS: 36415; 71046-TC-FY; 80053; 84484; 85025; 85610; 85730; 93005; 93010; 99285-25

== ENCOUNTER 2023-10-11 12:19 | Emergency (ER) | payer OTHER ==
[2023-10-11 12:37] VITALS: BP 144/76; PULSE 67; RESP 18; TEMP 98.5; BMI 29.2
[2023-10-11] MEDS ORDERED: KETOROLAC TROMETHAMINE 15 MG/ML VIAL ONE (13:43)
[2023-10-11 13:49] LABS: HEMATOCRIT 41.6 % (32.4-45.2); HEMOGLOBIN 14.1 GM/dL (10.7-15.3); MEAN CELL VOLUME 85.3 fl (80-96); MEAN PLT VOLUME 8.5 fl (7.5-11.1); PLATELET COUNT 206 10^3/uL (134-434); RBC 4.88 M/mm3 (3.60-5.2); RDW 13.6 % (11.6-15.6); WHITE BLOOD COUNT 4.4 K/mm3 (4.0-10.0)
[2023-10-11] MEDS: KETOROLAC TROMETHAMINE 15 MG/ML VIAL IVPUSH ONE (13:53)
[2023-10-11] MEDS: SODIUM CHLORIDE 1,000 ML IV STA (13:54)
[2023-10-11 14:12] LABS: POTASSIUM 4.1 mmol/L (3.5-5.1)
[2023-10-11 14:14] LABS: BLOOD UREA NITROGEN 18.1 mg/dL (7-18); CALCIUM 9.2 mg/dL (8.5-10.1)
[2023-10-11 14:18] LABS: CREATININE 0.7 mg/dL (0.55-1.3)
[2023-10-11 14:20] LABS: BILIRUBIN,TOTAL 0.5 mg/dL (0.2-1); TOT PROT 6.9 g/dl (6.4-8.2)
[2023-10-11 14:23] LABS: URINE APPEARANCE CLEAR; URINE BILIRUBIN NEGATIVE (NEGATIVE); URINE COLOR YELLOW; URINE GLUCOSE (UA) 3+ (NEGATIVE); URINE KETONE NEGATIVE (NEGATIVE); URINE LEUK ESTERASE NEGATIVE (NEGATIVE); URINE NITRITE NEGATIVE (NEGATIVE); URINE PROTEIN NEGATIVE (NEGATIVE); URINE UROBILINOGEN 0.2 mg/dL (0.2-1.0)
[2023-10-11 15:08] LABS: HIV INTERPRETATION NEGATIVE (NEGATIVE)
== END 2023-10-11 17:49 | disposition home or self-care (01) ==
LOC: JER 12:19
PROC: 3E0333Z Introduction of Anti-inflammatory into Peripheral Vein, Percutaneous Approach (ICD-10-PCS; principal; 2023-10-11)
PROC: 3E0337Z Introduction of Electrolytic and Water Balance Substance into Peripheral Vein, Percutaneous Approach (ICD-10-PCS; 2023-10-11)
DX: R10.12 Left upper quadrant pain (principal); K59.00 Constipation, unspecified
CPT/HCPCS: 36415; 74177-TC; 80053; 81003; 85027; 86803; 87086; 87389; 99285-25; Q9967

== ENCOUNTER 2023-10-23 04:21 | Day surgery (SDC) | payer OTHER ==
[2023-10-23 13:23] VITALS: BMI 25.7
[2023-10-23] MEDS ORDERED: DEXAMETHASONE SOD PHOSPHATE 4 MG/1 ML VIAL ONE (14:04)
[2023-10-23] MEDS ORDERED: LIDOCAINE HCL/PF 2% SDV 5ML VIAL ONE (14:04)
[2023-10-23] MEDS ORDERED: ceFAZolin SODIUM 1 GM VIAL ONE (14:04)
[2023-10-23] MEDS ORDERED: ONDANSETRON 4 MG/2 ML VIAL ONE (14:04)
[2023-10-23] MEDS ORDERED: ACETAMINOPHEN INJECTION 100 ML ONE (14:05)
[2023-10-23] MEDS ORDERED: SUCCINYLCHOLINE CHLORIDE 200 MG/10 ML SYRINGE ONE (14:06)
[2023-10-23] MEDS ORDERED: ONDANSETRON 4 MG/2 ML VIAL IVPUSH PRN (17:35)
[2023-10-23] MEDS ORDERED: LACTATED RINGERS SOLUTION 1,000 ML IV SCH (17:45)
[2023-10-23] MEDS ORDERED: MIDAZOLAM HCL 2 MG/2 ML SINGLE DOSE VIAL ONE (17:46)
[2023-10-23] MEDS ORDERED: PROPOFOL 20 ML ONE ×2 (17:46→17:49)
[2023-10-23] MEDS ORDERED: GENTAMICIN SO4 80 MG/2 ML VIAL ONE (17:47)
[2023-10-23] MEDS: GENTAMICIN SO4 80 MG/2 ML VIAL IVPB ONE ×2 (17:50→17:52)
[2023-10-23] MEDS: ceFAZolin SODIUM 1 GM VIAL IVPB ONE ×2 (17:50→17:51)
[2023-10-23] MEDS: oxyCODONE HCL 5 MG TABLET PO PRN (19:07)
[2023-10-23] MEDS ORDERED: oxyCODONE HCL 5 MG TABLET ONE (19:08)
[2023-10-23 19:16] VITALS: PULSE 62
[2023-10-23 19:18] VITALS: BP 125/67; RESP 20; TEMP 97.3
== END 2023-10-23 19:35 | disposition home or self-care (01) ==
LOC: JASU-SURG 04:21
PROVIDERS: ATTEND Urology
PROC: BT1FYZZ Fluoroscopy of Left Kidney, Ureter and Bladder using Other Contrast (ICD-10-PCS; principal; 2023-10-23 17:30)
DX: N13.2 Hydronephrosis with renal and ureteral calculous obstruction (principal)
CPT/HCPCS: 36415; 76000-TC-FY; 82010; 82962; 94760; C1758; J0131

== ENCOUNTER 2023-11-24 13:14 | Emergency (ER) | payer OTHER ==
[2023-11-24 13:21] VITALS: BP 148/83; PULSE 75; RESP 18; TEMP 98.3; BMI 25.5
[2023-11-24] MEDS ORDERED: ACETAMINOPHEN 1000 MG/100 ML BAG IVPB ONE (14:21)
[2023-11-24] MEDS ORDERED: METOCLOPRAMIDE HCL INJECTION 10 MG/2 ML VIAL IVPB ONE (14:22)
[2023-11-24] MEDS ORDERED: MECLIZINE HCL 25 MG TABLET (FP) PO ONE (14:22)
== END 2023-11-24 15:32 | disposition left against medical advice (07) ==
LOC: JER 13:14
DX: R00.2 Palpitations (principal); R51.9 Headache, unspecified; R42 Dizziness and giddiness; K08.89 Other specified disorders of teeth and supporting structures
CPT/HCPCS: 71045-TC-FY; 93005; 93010; 99284-25